=== PATIENT | male | born 1985 | race Two or more races ===

== ENCOUNTER 2022-08-03 16:58 | Inpatient (IN) | payer OTHER ==
[2022-08-03] MEDS ORDERED: LOPERAMIDE HCL 2 MG CAPSULE PO PRN (21:02)
[2022-08-03] MEDS ORDERED: NALOXONE HCL 0.4 MG/ML VIAL IM PRN (21:02)
[2022-08-03] MEDS ORDERED: NALOXONE HCL (KLOXXADO) 8 MG SPRAY NS PRN (21:02)
[2022-08-03] MEDS ORDERED: MAGNESIUM HYDROX 2400MG/30ML ORAL SUSPENSION 30 ML CUP PO PRN (21:02)
[2022-08-03] MEDS ORDERED: BENZOCAINE/MENTHOL (CHLORASEPTIC ) LOZENGE MM PRN (21:02)
[2022-08-03] MEDS ORDERED: guaiFENesin 600 MG TABLET.ER (FP) PO PRN (21:02)
[2022-08-03] MEDS ORDERED: DICYCLOMINE HCL 10 MG CAPSULE PO PRN (21:02)
[2022-08-03] MEDS ORDERED: BENZONATATE 200 MG CAPSULE PO PRN (21:02)
[2022-08-03] MEDS ORDERED: NICOTINE 10 MG CARTRIDGE (INHALER) IH PRN (21:02)
[2022-08-03] MEDS ORDERED: BISMUTH SUBSALICYLATE 524 MG/30 ML PO PRN (21:02)
[2022-08-03] MEDS ORDERED: IBUPROFEN 400 MG TABLET (FP) PO PRN (21:02)
[2022-08-03] MEDS ORDERED: MAG HYDROX/AL HYDROX/SIMETH 30 ML UNIT-DOSE CUP PO PRN (21:02)
[2022-08-03] MEDS ORDERED: IBUPROFEN 600 MG TABLET (FP) PO PRN (21:02)
[2022-08-03] MEDS ORDERED: POLYETHYLENE GLYCOL (HEALTHYLAX) 3350 17 GM PACKET PO PRN (21:02)
[2022-08-03] MEDS ORDERED: ACETAMINOPHEN 325 MG TABLET (FP) PO PRN (21:02)
[2022-08-03] MEDS ORDERED: ONDANSETRON *ODT* 4 MG TABLET SL PRN (21:02)
[2022-08-03] MEDS: METHOCARBAMOL 500 MG TABLET PO PRN (22:44)
[2022-08-03] MEDS: MELATONIN 5 MG TABLETS PO SCH (22:44)
[2022-08-03] MEDS: THIAMINE HCL 100 MG TABLET (FP) PO SCH (22:44)
[2022-08-04] MEDS ORDERED: ONDANSETRON *ODT* 4 MG TABLET SL ONE ×2 (09:58→15:42)
[2022-08-04] MEDS ORDERED: diazePAM 5 MG TABLET PO PRN (09:59)
[2022-08-04] MEDS ORDERED: methaDONE HCL 10 MG TABLET (FOR DETOX USE ONLY) PO ONE ×2 (09:59→13:00)
[2022-08-04] MEDS ORDERED: FAMOTIDINE 20 MG TABLET PO SCH (10:15)
[2022-08-04] MEDS: TRIMETHOBENZAMIDE HCL 200MG/2ML INJ IM PRN (10:24)
[2022-08-04] MEDS: NICOTINE 14 MG/24 HOURS TOPICAL PATCH TD SCH (10:50)
[2022-08-04] MEDS: PRENATAL VITAMINS W/ FOLIC ACID TABLET (FP) PO SCH (10:50)
[2022-08-04] MEDS ORDERED: diazePAM 5 MG TABLET PO SCH (11:00)
[2022-08-04] MEDS ORDERED: methaDONE HCL 40 MG DISPERSABLE TABLET PO ONE (13:30)
[2022-08-04] MEDS: diazePAM 5 MG TABLET PO SCH ×2 (17:47→22:37)
[2022-08-04] MEDS: FAMOTIDINE 20 MG TABLET PO SCH (22:37)
[2022-08-04] MEDS: cloNIDine HCL 0.1 MG TABLET PO PRN (22:37)
[2022-08-04] MEDS: THIAMINE HCL 100 MG TABLET (FP) PO SCH (22:38)
[2022-08-04] MEDS: MELATONIN 5 MG TABLETS PO SCH (22:38)
[2022-08-05] MEDS: diazePAM 5 MG TABLET PO SCH ×4 (05:58→22:58)
[2022-08-05] MEDS ORDERED: methaDONE HCL 40 MG DISPERSABLE TABLET PO ONE (09:54)
[2022-08-05] MEDS: NICOTINE 14 MG/24 HOURS TOPICAL PATCH TD SCH (10:41)
[2022-08-05] MEDS: PRENATAL VITAMINS W/ FOLIC ACID TABLET (FP) PO SCH (10:41)
[2022-08-05] MEDS: FAMOTIDINE 20 MG TABLET PO SCH ×2 (10:41→22:36)
[2022-08-05] MEDS: MELATONIN 5 MG TABLETS PO SCH (22:36)
[2022-08-05] MEDS: THIAMINE HCL 100 MG TABLET (FP) PO SCH (22:37)
[2022-08-06] MEDS: methaDONE HCL 40 MG DISPERSABLE TABLET PO SCH (05:59)
[2022-08-06] MEDS: diazePAM 5 MG TABLET PO SCH ×3 (06:00→22:47)
[2022-08-06] MEDS ORDERED: methaDONE HCL 10 MG TABLET (FOR DETOX USE ONLY) PO ONE (10:00)
[2022-08-06] MEDS: NICOTINE 14 MG/24 HOURS TOPICAL PATCH TD SCH (10:23)
[2022-08-06] MEDS: METHOCARBAMOL 500 MG TABLET PO PRN (10:24)
[2022-08-06] MEDS: FAMOTIDINE 20 MG TABLET PO SCH ×3 (10:24→22:55)
[2022-08-06] MEDS: PRENATAL VITAMINS W/ FOLIC ACID TABLET (FP) PO SCH (10:24)
[2022-08-06] MEDS: cloNIDine HCL 0.1 MG TABLET PO PRN (22:47)
[2022-08-06] MEDS: MELATONIN 5 MG TABLETS PO SCH ×2 (22:47→22:54)
[2022-08-06] MEDS: THIAMINE HCL 100 MG TABLET (FP) PO SCH ×2 (22:47→22:55)
[2022-08-07] MEDS: methaDONE HCL 40 MG DISPERSABLE TABLET PO SCH (05:22)
[2022-08-07] MEDS: diazePAM 5 MG TABLET PO SCH ×2 (05:22→18:11)
[2022-08-07] MEDS: FAMOTIDINE 20 MG TABLET PO SCH ×2 (10:44→22:44)
[2022-08-07] MEDS: PRENATAL VITAMINS W/ FOLIC ACID TABLET (FP) PO SCH (10:44)
[2022-08-07] MEDS: NICOTINE 14 MG/24 HOURS TOPICAL PATCH TD SCH (10:44)
[2022-08-07] MEDS ORDERED: diazePAM 5 MG TABLET PO ONE (15:38)
[2022-08-07] MEDS: THIAMINE HCL 100 MG TABLET (FP) PO SCH (22:44)
[2022-08-07] MEDS: MELATONIN 5 MG TABLETS PO SCH (22:44)
[2022-08-08] MEDS ORDERED: diazePAM 5 MG TABLET PO ONE (06:00)
[2022-08-08] MEDS: methaDONE HCL 40 MG DISPERSABLE TABLET PO SCH (06:13)
[2022-08-08] MEDS ORDERED: TRIMETHOBENZAMIDE HCL 200MG/2ML INJ IM PRN (07:53)
[2022-08-08] MEDS: TRIMETHOBENZAMIDE HCL 200MG/2ML INJ IM PRN (08:54)
[2022-08-08 09:29] VITALS: RESP 18
[2022-08-08] MEDS ORDERED: methaDONE HCL 10 MG TABLET (FOR DETOX USE ONLY) PO ONE (10:00)
[2022-08-08] MEDS: METHOCARBAMOL 500 MG TABLET PO PRN (10:42)
[2022-08-08] MEDS: FAMOTIDINE 20 MG TABLET PO SCH (10:42)
[2022-08-08] MEDS: NICOTINE 14 MG/24 HOURS TOPICAL PATCH TD SCH (10:43)
[2022-08-08] MEDS: PRENATAL VITAMINS W/ FOLIC ACID TABLET (FP) PO SCH (10:43)
[2022-08-08 13:04] VITALS: BP 120/88; PULSE 81; TEMP 98.4
== END 2022-08-08 14:55 | disposition home or self-care (01) | DRG 773 ==
LOC: YASAS 16:58 → Y6N 21:24
PROVIDERS: ADMIT Allergy & Immunology; ATTEND Surgery
PROC: HZ2ZZZZ Detoxification Services for Substance Abuse Treatment (ICD-10-PCS; principal; 2022-08-03)
DX: F11.20 Opioid dependence, uncomplicated (principal); F13.230 Sedative, hypnotic or anxiolytic dependence with withdrawal, uncomplicated; F12.20 Cannabis dependence, uncomplicated; F17.210 Nicotine dependence, cigarettes, uncomplicated; J45.909 Unspecified asthma, uncomplicated; Z56.0 Unemployment, unspecified; Z59.00 Homelessness unspecified
CPT/HCPCS: 87635; 93005; 93010; Q0162